=== PATIENT | female | born 1975 | race Caucasian/White ===

== ENCOUNTER → 2017-05-08 | Outpatient (CLI) | payer OTHER ==
[~2017-05-08] MED LIST: OPTIRAY 320 IV PRN
--- NOTE | 2017-05-08 12:57 | DIAGNOSTIC IMAGING REPORT ---
CT ABD/PELVIS IV CONTRAST ONLY CLINICAL HISTORY: INCISIONAL HERNIA COMPARISON STUDY: None. TECHNIQUE: Following the IV administration of 93 mL of Optiray-320, CT scan of the abdomen and pelvis was performed from the lung bases to the proximal femurs. Images are reviewed in the axial, sagittal, and coronal planes. IV contrast was administered without complication. A dose lowering technique was utilized adhering to the principles of ALARA. CT DOSE: 725.84 mGy.cm FINDINGS: Lower chest: There is a 16 mm groundglass opacity within the lingula. Liver: The contrast-enhanced liver is normal in size, contour, and attenuation. There is no intrahepatic biliary ductal dilatation. The hepatic veins and portal veins are patent. Gallbladder: Unremarkable. Spleen: Normal in size and attenuation. Pancreas: Unremarkable. Adrenal glands: Unremarkable. Kidneys: There is symmetric renal cortical enhancement. The kidneys are normal in size without hydronephrosis. Bowel: There are no transition zones to indicate bowel obstruction. The appendix appears normal. There is no evidence of acute diverticulitis. Peritoneum: There are 2 fat-containing supraumbilical ventral hernias. There is a fat-containing umbilical hernia. There is an infraumbilical ventral hernia containing a loop of small bowel. There is a right lateral abdominal wall hernia lipoma. No free intraperitoneal air is visualized. There is a small amount of fluid within the right adnexa. Vasculature: The abdominal aorta is normal in course and caliber. Adenopathy: None. Pelvic viscera: The uterus is surgically absent. There is a 3 cm septated left ovarian cystic lesion. Skeletal structures: No destructive osseous lesions are seen. IMPRESSION: 1. Four ventral hernias are visualized. The inferior most hernia contains a loop of small bowel. There is no current evidence of obstruction 2. No evidence of bowel obstruction. No evidence of free air 3. Surgically absent uterus. 3 cm septated left ovarian cystic lesion. Electronically signed by: Tristian Franco M.D. 05/08/2017 12:56 PM Dictated Date/Time: 05/08/2017 12:48 PM
== END | disposition home or self-care (01) ==
LOC: C.CTS 12:21
PROVIDERS: ATTEND Surgery
DX: K43.2 Incisional hernia without obstruction or gangrene (principal); N83.202 Unspecified ovarian cyst, left side; Z90.710 Acquired absence of both cervix and uterus

== ENCOUNTER → 2017-05-12 | Outpatient (CLI) | payer OTHER ==
[~2017-05-12] MED LIST changes: +ASPI-390 PO; +HYDR25TA4 PO; -OPTIRAY 320 IV PRN
[2017-05-12 13:12] LABS: BASO % 0.3 %; BASO ABS # 0.02 K/uL (0-0.2); COMPLETE YES; EOS % 2.6 %; HEMATOCRIT 41.1 % (37-47); IG% 0.1 %; LYMPH % 23.1 %; LYMPH ABS # 1.79 K/uL (1.2-3.4); MEAN CELL VOLUME 82.5 fL (80-100); MEAN CORPUSCULAR HEMOGLOBIN 27.9 pg (25-34); MEAN CORPUSCULAR HGB CONC 33.8 g/dl (32-36); MEAN PLATELET VOLUME 9.8 fL (7.4-10.4); NEUT % 66.9 %; PLATELET COUNT 223 K/uL (130-400); RED BLOOD COUNT 4.98 M/uL (4.2-5.4); WHITE BLOOD COUNT 7.75 K/uL (4.8-10.8)
[2017-05-12 13:43] LABS: ALKALINE PHOSPHATASE 87 U/L (45-117); ALT/SGPT 20 U/L (12-78); AST/SGOT 9 U/L (15-37)
== END | disposition home or self-care (01) ==
LOC: C.LAB 12:24
PROVIDERS: ATTEND Surgery
DX: Z01.812 Encounter for preprocedural laboratory examination (principal); K43.2 Incisional hernia without obstruction or gangrene

== ENCOUNTER 2017-05-24 08:52 | Observation (INO) | payer OTHER ==
[2017-05-15 11:46] VITALS: BMI 35.0
[~2017-05-24] VITALS: Ht 170.2 cm; Wt 102.3 kg
[2017-05-24] VITALS (7 sets, daily range): BP systolic 115–164; BP diastolic 75–100; PULSE 88–103; TEMP 36.6–37; O2SAT 93–98; Ht 170.2 cm; Wt 102.3 kg
[~2017-05-24 08:52] MED LIST changes: -HYDR25TA4 PO; +LACTATED RINGER'S 1000ML 1,000 ML IV SCH
[2017-05-24] MEDS ORDERED: BUPIVACAINE 0.5 % 5 MG/1 ML MPF 30ML VIAL ONE (09:21)
[2017-05-24] MEDS ORDERED: CEFAZOLIN SOD 2000MG/10 ML IV PUSH IV ONE (09:46)
--- NOTE | 2017-05-24 10:08 | History & Physical Bridge Note ---
H&P Re-Evaluation Bridge Note: I have examined the patient, reviewed the History & Physical and in the interval since the performance of the History & Physical I have noted the following changes of clinical significance: No changes noted
[2017-05-24] MEDS ORDERED: MIDAZOLAM HCL 1 MG/ML 2ML VIAL ONE (10:22)
[2017-05-24] MEDS ORDERED: FENTANYL CITRATE INJ 50 MCG/1 ML 2 ML VIAL ONE ×4 (10:22→13:45)
[2017-05-24] MEDS ORDERED: ONDANSETRON INJ 2 MG/ML 2 ML VIAL ONE (10:27)
[2017-05-24] MEDS ORDERED: DEXAMETHASONE SOD INJ 4 MG/ML VIAL ONE (10:27)
[2017-05-24] MEDS ORDERED: ROCURONIUM BROMIDE 10 MG/ML 5 ML VIAL IV ONE (10:27)
[2017-05-24] MEDS ORDERED: LIDOCAINE HCL 2% 2 ML VIAL (20MG/ML) ONE (10:27)
[2017-05-24] MEDS ORDERED: PROPOFOL IV EMULSION 10 MG/ML 20 ML VIAL IV ONE ×2 (10:27→13:42)
[2017-05-24] MEDS ORDERED: RANITIDINE HCL 25 MG/ML INJ ONE (10:55)
[2017-05-24] MEDS ORDERED: DiphenhydrAMINE HCL 50 MG/ML VIAL ONE (10:55)
[2017-05-24] MEDS ORDERED: METOCLOPRAMIDE HCL INJ 5 MG/ML 2 ML VIAL ONE (10:55)
[2017-05-24] MEDS ORDERED: LABETALOL HCL IV 5 MG/ML 20ML IV PRN (11:00)
[2017-05-24] MEDS ORDERED: ATROPINE SULFATE 0.1 MG/ML 5ML SYR IV PRN (11:00)
[2017-05-24] MEDS ORDERED: NALOXONE HCL 0.4 MG/1 ML VIAL/CARP IV PRN (11:00)
[2017-05-24] MEDS ORDERED: EpHEDrine SULFATE INJ 50 MG/ML AMP IV PRN (11:00)
[2017-05-24] MEDS ORDERED: PROMETHAZINE HCL INJ 12.5 MG in SODIUM CHLORIDE 0.9% 50ML 50 ML IV PRN (11:00)
[2017-05-24] MEDS ORDERED: ONDANSETRON INJ 2 MG/ML 2 ML VIAL IV PRN ×2 (11:00→14:15)
[2017-05-24] MEDS ORDERED: FLUMAZENIL 0.1 MG/1 ML 10 ML VIAL IV PRN (11:00)
[2017-05-24] MEDS ORDERED: KETOROLAC TROMETHAMINE 30 MG/ML VIAL ONE (13:44)
[2017-05-24] MEDS ORDERED: GLYCOPYRROLATE INJ 0.2 MG/ML VIAL ONE (13:51)
[2017-05-24] MEDS ORDERED: NEOSTIGMINE METHYLSULFATE 5 MG/5 ML SYR ONE (13:51)
[2017-05-24] MEDS: FENTANYL CITRATE INJ 50 MCG/1 ML 2 ML VIAL IV PRN ×4 (14:11→14:31)
--- NOTE | 2017-05-24 14:13 | [facility] Post Operative Brief Note ---
Immediate Operative Summary Operative Date May 24, 2017. Pre-Operative Diagnosis Incisional hernias Post-Operative Diagnosis Incarcerated incisional hernias Procedure(s) Performed Laparoscopic Incisional Hernia Repair, Incarcerated with Mesh, Extensive Lysis of Adhesions Surgeon Dr Cristiano Moore Airplane And Engine Inspector Surgeon(s) Morales WATERMAN, GUEVARA Valdovinos Estimated Blood Loss 15 mL Findings Significant adhesions of omentum and bowel to anterior abdominal wall, some very dense. Taken down with cautery, harmonic, and sharp dissection. Inferior defect with incarcerated small bowel and dense adhesions. Bowel run, no injuries identified. Multiple fascial defects. [id number] Ventralight ST with Echo PS mesh placed and secured into place with sorbafix tacks in double crown technique. 12mm port site closed with 0 vicryl suture. Specimens None Drains None Anesthesia GETA Complication(s) None Disposition Recovery Room / PACU
[2017-05-24] MEDS ORDERED: OXYCODONE/ACETAMINOPHEN 5-325 TAB PO PRN ×2 (14:15)
[2017-05-24] MEDS ORDERED: MoRPHine SULFATE 2 MG/ML CARP IV PRN ×2 (14:15)
[2017-05-24] MEDS ORDERED: KETOROLAC TROMETHAMINE 15 MG/ML VIAL IV PRN (14:15)
[2017-05-24] MEDS ORDERED: HYDROmorphone INJ 2 MG/ML SYR/VIAL IV STA (14:19)
--- NOTE | 2017-05-24 14:33 | [facility] Operative Report ---
Operative Report Operative Date May 24, 2017. Pre-Operative Diagnosis Incisional hernias Post-Operative Diagnosis incarcerated incisional hernias; adhesions Procedure(s) Performed laparoscopic incisional hernia repair with mesh, incarcerated; laparoscopic extensive lysis of adhesions Surgeon Dr Cristiano Moore Tear Down Worker Surgeon(s) Morales WATERMAN, GUEVARA Valdovinos Estimated Blood Loss 15 mL Findings Significant adhesions of omentum and bowel to anterior abdominal wall, some very dense. Taken down with cautery, harmonic, and sharp dissection. Inferior defect with incarcerated small bowel and dense adhesions. Bowel run, no injuries identified. Multiple fascial defects. [id number] Ventralight ST with Echo PS mesh placed and secured into place with sorbafix tacks in double crown technique. 12mm port site closed with 0 vicryl suture. Specimens None Drains None Anesthesia GETA Complication(s) None Disposition Recovery Room / PACU Indications 41-year-old female with a history of total abdominal hysterectomy for large fibroid tumor earlier this year, now with multiple incisional hernias, one of which contains bowel. Plan for laparoscopic incisional hernia repair. The risks of the procedure were discussed, all questions were answered, and the patient agreed to proceed with surgery as planned. Description of Procedure The patient was properly identified, consented, and taken to the operating room where she was placed in the supine position. General endotracheal anesthesia was induced. A Jacobs catheter, SCDs and a safety belt were placed. Preoperative antibiotics were administered. The patient's abdomen was prepped and draped in the standard sterile fashion. Surgical timeout was performed and all parties were in agreement that this was the correct patient and procedure to be performed and we continued as planned. A stab incision was made in the left upper quadrant and the Veress needle was inserted. Saline drop test confirmed entry into the peritoneum. The abdomen was insufflated with carbon dioxide which the patient tolerated without incident. The abdomen was then entered using the Optiview technique and a 5 mm trocar. The laparoscope was inserted and no damage from initial trocar or Veress needle placement was noted. There is extensive adhesions, no other gross abnormalities were noted within the 4 quadrants of the abdomen. A 12 mm port was placed in the left lateral abdomen and a 5 mm port were then placed in the left lower quadrant. There was significant amount of adhesions within the abdomen. The omental adhesions to the anterior abdominal were taken down with electrocautery and Harmonic. The upper midline incisional hernias were reduced and contained mostly omentum. The inferior portion of the abdomen contained dense adhesions, many of which contained bowel. There were several pieces of bowel stuck to the anterior abdominal wall at the inferior most portion of the incisional hernia, and one loop of bowel was densely adhesed into the hernia itself. This was taken down with sharp dissection. A small amount of abdominal wall was taken with this. After the extensive lysis of adhesions had been performed, the bowel was examined and run for the entirety of its length. There appeared to be no injury to the bowel. The hernia defects were then examined and measured. We chose a 25 x [address] with Echo PS mesh. The mesh was soaked for a few seconds and then rolled into a scroll and passed through the left lateral abdominal port site. A suture grasper inserted through the anterior bowel wall in the middle of the multiple hernias, and was then used to grab the tab and pull it up through the anterior abdominal wall. This was cut and the positioning system inflated allowing the mesh to lay flat along the abdominal wall. The mesh covered all of the fascial defects with several centimeters of overlap. The mesh was oriented on its proper axis, and it was secured into place using the Sorbafix tacker along its entire perimeter. Two 5 mm ports were placed on the right to aid in this process. After the mesh was properly secured the positioning system was deflated and removed through the 12 mm port. We then completed securing the mesh in a double crown technique. The 12 mm port site fascia was closed with an 0 Vicryl [id number] suture using the suture passer. The abdomen was again examined and there was no evidence of damage to the bowel, and hemostasis was good. The ports are removed under direct visualization, and the abdomen was allowed to collapse. Port site incisions were closed with 4-0 Monocryl subcuticular sutures. Dermabond was placed over the wounds. The jacobs catheter was removed. The patient was extubated in the operating room and taken to the PACU where she recovered without apparent incident. All sponge, instrument and needle counts were correct at the conclusion of the procedure. The patient tolerated the procedure well. The PAs were essential for entering the abdomen, retraction, driving the camera , securing the mesh in place, and closing the incisions at the conclusion of the case. I attest to the content of the Intraoperative Record and any orders documented therein. Any exceptions are noted below.
[2017-05-24] MEDS: MEPERIDINE HCL 50 MG/ML CARP IV PRN ×3 (14:44→15:00)
[2017-05-24] MEDS ORDERED: NURSING VERBAL MED ORDER ONE (14:45)
[2017-05-24] MEDS ORDERED: IV FLUIDS COMPLETED PRN (14:45)
--- NOTE | 2017-05-24 15:06 | Anesthesiology Progress Note ---
Anesthesia Post Op Note Date & Time May 24, 2017 at 15:06 Vital Signs Pain Intensity: 6 Vital Signs Past 12 Hours Date Time Temp Pulse Resp B/P (MAP) Pulse Ox O2 Delivery O2 Flow Rate FiO2 05/24/17 15:00 95 14 151/89 96 Nasal Cannula 2 05/24/17 14:50 92 12 165/93 96 Nasal Cannula 2 05/24/17 14:40 96 13 160/100 95 Nasal Cannula 2 05/24/17 14:30 103 13 155/88 99 Nasal Cannula 2 05/24/17 14:20 100 12 166/90 97 Oxymask 10 05/24/17 14:10 100 12 161/86 100 Oxymask 10 05/24/17 14:04 37.3 103 18 159/100 100 Oxymask 10 05/24/17 09:17 37.0 88 18 164/100 (121) 98 Room Air Notes Mental Status: alert / awake / arousable, participated in evaluation Pt Amnestic to Procedure: Yes Nausea / Vomiting: adequately controlled Pain: adequately controlled Airway Patency, RR, SpO2: stable & adequate BP & HR: stable & adequate Hydration State: stable & adequate Anesthetic Complications: no major complications apparent
[2017-05-24] MEDS: LACTATED RINGER'S 1000ML 1,000 ML IV SCH (17:23)
[2017-05-25] MEDS: LACTATED RINGER'S 1000ML 1,000 ML IV SCH (01:02)
[2017-05-25 03:32] VITALS: BP 136/84; PULSE 76; TEMP 36.9; O2SAT 95
[2017-05-25 07:51] VITALS: BP 148/87; PULSE 93; TEMP 36.7; O2SAT 95
--- NOTE | 2017-05-25 09:44 | Anesthesiology Progress Note ---
Anesthesia Post Op Note Date & Time May 25, 2017 at 09:43 Vital Signs Pain Intensity: 7.0 Vital Signs Past 12 Hours Date Time Temp Pulse Resp B/P (MAP) Pulse Ox O2 Delivery O2 Flow Rate FiO2 05/25/17 07:51 36.7 93 16 148/87 (107) 95 Room Air 05/25/17 03:32 36.9 76 16 136/84 (101) 95 Room Air 05/25/17 00:30 Room Air 05/24/17 23:10 37.0 88 16 115/75 (88) 93 Room Air Notes Mental Status: alert / awake / arousable, participated in evaluation Pt Amnestic to Procedure: Yes Nausea / Vomiting: adequately controlled Pain: adequately controlled Airway Patency, RR, SpO2: stable & adequate BP & HR: stable & adequate Hydration State: stable & adequate Anesthetic Complications: no major complications apparent
[2017-05-25] MEDS ORDERED: OXYC-57 PO (10:11)
--- NOTE | 2017-05-25 10:11 | Surgery Progress Note ---
Surgery Progress Note Date of Service May 25, 2017. Subjective Post OP Day: 1 + feeling well, + pain controlled, + diet (tolerating), No nausea Objective Vital Signs: Date Time Temp Pulse Resp B/P (MAP) Pulse Ox O2 Delivery O2 Flow Rate FiO2 05/25/17 07:51 36.7 93 16 148/87 (107) 95 Room Air 05/25/17 03:32 36.9 76 16 136/84 (101) 95 Room Air 05/25/17 00:30 Room Air 05/24/17 23:10 37.0 88 16 115/75 (88) 93 Room Air 05/24/17 18:58 36.9 101 18 128/81 (97) 94 Room Air 05/24/17 17:45 36.9 97 18 145/94 (111) 96 Nasal Cannula 2.0 05/24/17 16:45 36.6 93 18 121/79 (93) 97 Nasal Cannula 2.0 05/24/17 16:15 36.8 95 18 128/84 (99) 96 Nasal Cannula 2.0 05/24/17 15:45 36.8 103 14 137/83 (101) 96 Nasal Cannula 2.0 05/24/17 15:45 96 Nasal Cannula 2.0 05/24/17 15:45 96 Nasal Cannula 2.0 05/24/17 15:25 89 12 132/92 94 Nasal Cannula 2 05/24/17 15:10 37.3 95 13 144/81 96 Nasal Cannula 2 05/24/17 15:00 95 14 151/89 96 Nasal Cannula 2 05/24/17 14:50 92 12 165/93 96 Nasal Cannula 2 05/24/17 14:40 96 13 160/100 95 Nasal Cannula 2 05/24/17 14:30 103 13 155/88 99 Nasal Cannula 2 05/24/17 14:20 100 12 166/90 97 Oxymask 10 05/24/17 14:10 100 12 161/86 100 Oxymask 10 05/24/17 14:04 37.3 103 18 159/100 100 Oxymask 10 Abdomen: non distended, soft Incision(s): clean, dry Assessment & Plan s/p lap repair multiple incisional hernias tolerating diet and analgesics, ok for d/c seen earlier by Dr. Moore
--- NOTE | 2017-05-25 10:13 | Discharge Instructions ---
Discharge Instructions Date of Service May 25, 2017. Admission Reason for Admission: Incisional Hernia Discharge Discharge Diagnosis / Problem: laparoscopic hernia repairs Discharge Goals Goal(s): Decrease discomfort Activity Recommendations Activity Limitations: as noted below Lifting Limitations: no more than 10 pounds Shower/Bathe: no limitations (ok to shower) Driving or Machine Use: resume 3 days after discharge . Instructions / Follow-Up Instructions / Follow-Up Dr. Moore in 10-14 days, call [phone] if you do not already have an appt or if you have any questions You may take ibuprofen 400-600 mg every 6 hours as needed between Percocet doses Current Hospital Diet Patient's current hospital diet: Regular Diet Discharge Diet Recommended Diet: Regular Diet Procedures Procedures Performed: Laparoscopic Incisional Hernia Repair, Incarcerated with Mesh, Extensive Lysis of Adhesions Pending Studies Studies pending at discharge: no Medical Emergencies . Who to Call and When: Medical Emergencies: If at any time you feel your situation is an emergency, please call 911 immediately. . Non-Emergent Contact Non-Emergency issues call your: Surgeon Call Non-Emergent contact if: you have a fever, temperature is above 101.5, your pain is not controlled, wound has increased pain, you have any medication questions . "Provider Documentation" section prepared by Valdemar Mitchell. . VTE Core Measure Inpt VTE Proph given/why not?: SCD's
--- NOTE | 2017-05-25 10:19 | Surgery Progress Note ---
Surgery Progress Note Date of Service May 25, 2017. Subjective 41-year-old female status post laparoscopic incisional hernia repair with extensive lysis of adhesions, postoperative day 1. Overall doing well, pain is improved since last night. She has tolerated regular diet, she is urinating, she is passing flatus, and she is ambulating. She would like to be discharged. Objective Vital Signs: Date Time Temp Pulse Resp B/P (MAP) Pulse Ox O2 Delivery O2 Flow Rate FiO2 05/25/17 07:51 36.7 93 16 148/87 (107) 95 Room Air 05/25/17 03:32 36.9 76 16 136/84 (101) 95 Room Air 05/25/17 00:30 Room Air 05/24/17 23:10 37.0 88 16 115/75 (88) 93 Room Air 05/24/17 18:58 36.9 101 18 128/81 (97) 94 Room Air 05/24/17 17:45 36.9 97 18 145/94 (111) 96 Nasal Cannula 2.0 05/24/17 16:45 36.6 93 18 121/79 (93) 97 Nasal Cannula 2.0 05/24/17 16:15 36.8 95 18 128/84 (99) 96 Nasal Cannula 2.0 05/24/17 15:45 36.8 103 14 137/83 (101) 96 Nasal Cannula 2.0 05/24/17 15:45 96 Nasal Cannula 2.0 05/24/17 15:45 96 Nasal Cannula 2.0 05/24/17 15:25 89 12 132/92 94 Nasal Cannula 2 05/24/17 15:10 37.3 95 13 144/81 96 Nasal Cannula 2 05/24/17 15:00 95 14 151/89 96 Nasal Cannula 2 05/24/17 14:50 92 12 165/93 96 Nasal Cannula 2 05/24/17 14:40 96 13 160/100 95 Nasal Cannula 2 05/24/17 14:30 103 13 155/88 99 Nasal Cannula 2 05/24/17 14:20 100 12 166/90 97 Oxymask 10 05/24/17 14:10 100 12 161/86 100 Oxymask 10 05/24/17 14:04 37.3 103 18 159/100 100 Oxymask 10 General Appearance: WD/WN, no apparent distress Abdomen: normal bowel sounds, non distended, soft, no organomegaly, no pulsatile mass, + tenderness (Appropriately tender to palpation, no guarding or rebound.) Incision(s): clean, dry, intact, no erythema, no drainage Assessment & Plan POD#1 status post laparoscopic incisional hernia repair with extensive lysis of adhesions, doing well, pain controlled, would like to be discharged. Discharge to home Wound care instructions given Recommend abdominal binder for 2 weeks No heavy lifting or strenuous activity for 6 weeks Follow up in clinic in 10-14 days Percocet p.r.n. pain, ibuprofen for pain Return precautions given Call with questions or concerns
[2017-05-25 10:22] VITALS: BP 148/87; PULSE 93; TEMP 36.7; O2SAT 95
--- NOTE | 2017-05-26 09:56 | DISCHARGE SUMMARY ---
ATTENDING PHYSICIAN: Dr. Cristiano Moore. PRIMARY DISCHARGE DIAGNOSIS: Multiple incarcerated incisional hernias. SECONDARY DISCHARGE DIAGNOSES: 1. Hypertension. 2. Migraines. PROCEDURE PERFORMED: Laparoscopic repair of multiple incisional hernias and extensive lysis of adhesions. HOSPITAL COURSE: The patient is a 41-year-old female with multiple incisional hernias, admitted through same day and taken to the operating room for laparoscopic repair with mesh. A 20 x 25 cm Ventralight mesh was placed. The procedure was well tolerated. She was transferred to the surgical floor for an overnight observation. On postoperative day 1, she was tolerating diet and oral analgesics. Her incisions were clean and dry. Her abdomen was soft. She was stable for discharge. DISCHARGE INSTRUCTIONS: Discharge home. Follow up with Dr. Moore within 2 weeks. Continue to wear abdominal binder during the day. DISCHARGE MEDICATIONS: Percocet 1-2 tablets every 4 hours as needed. Continue home hydrochlorothiazide 25 mg daily, and hold Excedrin Migraine as long as she is taking the Percocet.
[2017-05-26] MEDS ORDERED: HYDR25TA4 PO (11:48)
== END 2017-05-25 10:55 | disposition home or self-care (01) ==
LOC: C.ACU 08:52 → C.MSW 09:15 → ENRESERV 15:21
PROVIDERS: ADMIT Surgery; ATTEND Surgery
DX: K43.0 Incisional hernia with obstruction, without gangrene (principal); R63.5 Abnormal weight gain; I10 Essential (primary) hypertension

== ENCOUNTER 2017-05-26 17:27 | Inpatient (IN) | payer OTHER ==
[~2017-05-26] VITALS: Ht 170.2 cm; Wt 35.2 kg
[~2017-05-26 17:27] MED LIST changes: -ASPI-390 PO; +HYDR25TA4 PO; -LACTATED RINGER'S 1000ML 1,000 ML IV SCH; +OXYC-57 PO
[2017-05-26] MEDS ORDERED: ONDANSETRON INJ 2 MG/ML 2 ML VIAL IV STA (17:55)
--- NOTE | 2017-05-26 17:58 | EMERGENCY ROOM VISIT NOTE ---
History Report prepared by Ferminibaranza: Xiomara More Under the Supervision of: Dr. Sundeep Ríos M.D. First contact with patient: 17:29 Stated Complaint: NAUSEA/VOMIT History of Present Illness The patient is a 41 year old white female with a past medical history of HTN who presents to the ED with a cc of persistent vomiting beginning around 2200 last night. Positive nausea, abdominal pain. Negative back pain, urinary symptoms. She reports she had hernia surgery this past Monday, by Dr. Moore here at [facility]. She was kept overnight 1 night, and states she felt well when she got home. She had been taking Percocet for post-surgical pain. Last night she started vomiting and has been unable to keep anything down since then last night. Her last BM was 2 days [employer], before her surgery. She has not been passing gas. Source of History: patient Onset: 2200 last night Position: other (global) Timing: other (persistent) Associated Symptoms: + nausea, + abdominal pain, No back pain, No urinary symptoms Review of Systems See HPI for pertinent positives and negatives. A total of ten systems were reviewed and were otherwise negative. Past Medical & Surgical Medical Problems: (1) Hypertension (2) Ileus following gastrointestinal surgery (3) Uterine fibroid (4) Ventral incisional hernia Surgical Problems: (1) History of hernia surgery (2) History of hysterectomy Social History Smoking Status: Never Smoker Alcohol Use: none Drug Use: none Marital Status: Housing Status: lives with family Occupation Status: employed Current/Historical Medications Scheduled Hydrochlorothiazide (Hctz), 25 MG PO QAM Scheduled PRN Oxycodone/Acetaminophen 5MG/325MG (Percocet 5MG/325MG), 1-2 TABLETS PO Q4H PRN for Pain Allergies Coded Allergies: Codeine (Verified Allergy, Severe, ANAPHYLAXIS, 05/24/17) Physical Exam Vital Signs Date Time Temp Pulse Resp B/P (MAP) Pulse Ox O2 Delivery O2 Flow Rate FiO2 05/26/17 18:22 97 05/26/17 17:49 37.1 103 20 165/105 95 Room Air Physical Exam GENERAL: Awake, alert, well-appearing, NAD HENT: Normocephalic, atraumatic. EYES: Normal conjunctiva. Sclera non-icteric. NECK: Supple. No nuchal rigidity. FROM. No CVA tenderness to palpation. RESPIRATORY: CTAB, no rhonchi, wheezing, crackles CARDIAC: RRR, no MRG ABDOMEN: Well healing midline surgical incision. 4 smaller horizontal incisional sites, well appearing, mild redness, no fluctuance. LUQ pain. Abdominal tender except in LLQ. Soft, BS+ MSK: No chest wall TTP, no LE edema NEURO: GCS 15, CN 2-12 intact, moves all 4s on command SKIN: No rash or jaundice noted. Medical Decision & Procedures ER Provider Diagnostic Interpretation: Radiology results as stated below per my review and radiologist interpretation: CT SCAN OF THE ABDOMEN AND PELVIS WITH IV CONTRAST CLINICAL HISTORY: Obstipation. Nausea and vomiting. Recent surgery. COMPARISON STUDY: Abdominal CT dated 05/08/2017. TECHNIQUE: Following the IV administration of 116 cc of Optiray 320, CT scan of the abdomen and pelvis is performed from the lung bases to the proximal femora. Images are reviewed in the axial, sagittal, and coronal planes. IV contrast was administered without complication. A dose lowering technique was utilized adhering to the principles of ALARA. CT DOSE: 1020.37 mGy.cm FINDINGS: Lung bases: The heart is normal in size and without pericardial effusion. The lung bases are clear noting left basilar atelectasis. Liver: The contrast-enhanced liver is normal in size, contour, and attenuation. There is no intrahepatic biliary ductal dilatation. The hepatic veins and portal veins are patent. Gallbladder: Unremarkable. Spleen: Normal in size and attenuation. Pancreas: Unremarkable. Adrenal glands: Unremarkable. Kidneys: The contrast enhanced kidneys are normal in size and without hydronephrosis. The kidneys enhance symmetrically. Abdominal vasculature: The abdominal aorta is normal in course and caliber. Bowel: The proximal small bowel loops are distended and fluid-filled. These measure up to 4.2 cm in caliber. Matted loops in the ventral lower abdomen are likely related to adhesions. A discrete transition point is seen in the right lower quadrant on image #352. The appearance is consistent with a high-grade small bowel obstruction. The distal small bowel and colon are decompressed. The loops of small bowel in the left upper quadrant are significantly thick-walled and hyperemic with trace interloop fluid. No pneumatosis intestinalis or portal venous gas is seen. The appendix is well-visualized and normal. Peritoneum: There are tiny foci of intraperitoneal free air seen in the mid abdomen. These are nonspecific and likely related to recent surgery. A midline surgical scar is noted. There is a small volume of free fluid in the pelvis. There is a complex fat-containing umbilical hernia. There are small fat-containing supraumbilical hernias. There is a fluid containing infraumbilical hernia seen on image #326. The pocket of fluid measures 3.6 cm. There is a complex gas and fluid containing collection in the central pelvis with surrounding bowel loops seen image #396. This measures approximately 7 x 11 x 6 cm and is typical in appearance for abscess. Lymphadenopathy: None. Pelvic viscera: The bladder is normal as visualized. The uterus is surgically absent. No adnexal lesion is seen. Skeletal structures: No lytic or blastic lesions are seen. Soft tissues: There is induration and fluid seen within the subcutaneous soft tissues in the ventral abdomen, the right flank, and in the left flank. Numerous foci of gas are present within the subcutaneous soft tissues throughout the abdomen, likely related recent surgery. IMPRESSION: 1. Findings are consistent with a high-grade small bowel obstruction. A transition point is identified in the right lower quadrant, and this is likely on the basis of adhesions. 2. The small bowel loops in the left upper quadrant are thick-walled and hyperemic. These loops may be a risk for ischemia. Surgical consultation is advised. 3. There are small foci of intraperitoneal free air, nonspecific and likely related to recent surgery. 4. There is a large complex gas and fluid containing collection in the central pelvis with surrounding bowel loops. The appearance is highly suggestive of abscess. 5. There is a complex umbilical hernia as well as supraumbilical and intraumbilical hernias. Nonspecific fluid is seen within an infraumbilical hernia. Abscess is not excluded. 6. There is trace free fluid in the pelvis. 7. Induration with subcutaneous fluid and foci of gas within the abdominal wall are likely related to recent surgery. 8. Additional findings as above. Electronically signed by: All Stuart M.D. 05/26/2017 7:40 PM KUB CLINICAL HISTORY: Small bowel obstruction. FINDINGS: 2 AP supine abdominal radiographs are correlated with abdominal CT performed the same day 05/26/2017. Small bowel obstruction is again noted. Small bowel loops measure up to 4.3 cm in caliber. No evidence of intraperitoneal free air is seen on these supine views. Excreted contrast is present in the renal collecting system bilaterally and the bladder. No abnormal abdominal calcifications are seen. The bony structures appear intact. IMPRESSION: Small bowel obstruction. Electronically signed by: All Stuart M.D. 05/26/2017 8:19 PM Laboratory Results 05/26/17 18:15 Red Blood Count 5.21, Mean Corpuscular Volume 82.3, Mean Corpuscular Hemoglobin 28.6, Mean Corpuscular Hemoglobin Concent 34.7, Mean Platelet Volume 9.7, Neutrophils (%) (Auto) 89.6, Lymphocytes (%) (Auto) 4.6, Monocytes (%) (Auto) 5.4, Eosinophils (%) (Auto) 0.0, Basophils (%) (Auto) 0.1, Neutrophils # (Auto) 14.71, Lymphocytes # (Auto) 0.75, Monocytes # (Auto) 0.89, Eosinophils # (Auto) 0.00, Basophils # (Auto) 0.02 05/26/17 18:15 Test 05/26/17 18:15 White Blood Count 16.42 K/uL (4.8-10.8) Red Blood Count 5.21 M/uL (4.2-5.4) Hemoglobin 14.9 g/dL (12.0-16.0) Hematocrit 42.9 % (37-47) Mean Corpuscular Volume 82.3 fL (80-100) Mean Corpuscular Hemoglobin 28.6 pg (25-34) Mean Corpuscular Hemoglobin Concent 34.7 g/dl (32-36) Platelet Count 288 K/uL (130-400) Mean Platelet Volume 9.7 fL (7.4-10.4) Neutrophils (%) (Auto) 89.6 % Lymphocytes (%) (Auto) 4.6 % Monocytes (%) (Auto) 5.4 % Eosinophils (%) (Auto) 0.0 % Basophils (%) (Auto) 0.1 % Neutrophils # (Auto) 14.71 K/uL (1.4-6.5) Lymphocytes # (Auto) 0.75 K/uL (1.2-3.4) Monocytes # (Auto) 0.89 K/uL (0.11-0.59) Eosinophils # (Auto) 0.00 K/uL (0-0.5) Basophils # (Auto) 0.02 K/uL (0-0.2) RDW Standard Deviation 41.3 fL (36.4-46.3) RDW Coefficient of Variation 13.7 % (11.5-14.5) Immature Granulocyte % (Auto) 0.3 % Immature Granulocyte # (Auto) 0.05 K/uL (0.00-0.02) Anion Gap 8.0 mmol/L (3-11) Est Creatinine Clear Calc Drug Dose 150.9 ml/min Estimated GFR () 130.1 Estimated GFR (Non- 112.3 BUN/Creatinine Ratio 27.8 (10-20) Calcium Level 9.0 mg/dl (8.5-10.1) Total Bilirubin 0.7 mg/dl (0.2-1) Direct Bilirubin 0.2 mg/dl (0-0.2) Aspartate Amino Transf (AST/SGOT) 15 U/L (15-37) Alanine Aminotransferase (ALT/SGPT) 21 U/L (12-78) Alkaline Phosphatase 83 U/L (45-117) Total Protein 7.5 gm/dl (6.4-8.2) Albumin 2.9 gm/dl (3.4-5.0) Lipase 94 U/L (73-393) Laboratory results reviewed by me Medications Administered Medications (Trade) Dose Ordered Sig/Fred Route Start Time Stop Time Status Last Admin Dose Admin Ondansetron HCl (Zofran Inj) 4 mg NOW STAT IV 05/26/17 17:55 05/26/17 17:56 DC 05/26/17 18:19 4 MG Lorazepam (Ativan Inj) 0.5 mg NOW STAT IV 05/26/17 19:59 05/26/17 20:01 DC 05/26/17 20:20 0.5 MG Ondansetron HCl (Zofran Inj) 4 mg Q6H PRN IV 05/26/17 20:15 06/25/17 20:14 05/26/17 22:00 4 MG ED Course 1746: The patient was evaluated in room C11. A complete history and physical exam was performed. 1754: Zofran 4 mg IV. 1958: Ativan 0.5 mg IV. 2002: I discussed the patients case with Dr. North, [facility]. He recommends I consult with the hospital medicine team. 2009: I reevaluated the patient. She is feeling well and resting comfortably. I discussed my recommendation she remain in the hospital for further evaluation and management and she verbalized complete understanding and agreement. 2011: I discussed the patients case with Dr. Conner [facility] Hospitalist. The patient will be further evaluated. Medical Decision The patient is a 41 year old white female with a past medical history of HTN who presents to the ED with a cc of persistent vomiting beginning around 2200 last night. Triage Nursing notes reviewed. The patient's presentation and history were concerning for abdominal pain. Differential diagnosis: Etiologies such as appendicitis, diverticulitis, PUD, biliary pathology, UTI, pancreatitis, obstruction, mesenteric ischemia, aortic pathology, infections, inflammatory bowel disease, renal colic, as well as others were entertained. Patient was seen and evaluated the bedside. Patient did have a recent laparoscopic hernia repair completed on Monday. Patient was discharged home on . Patient states that she's had some persistent nausea and vomiting beginning last evening around 10 PM. Patient states that his been persistent daily times to count. Nonbloody nonbilious in nature. Patient does have some mild diffuse pain throughout with the exception of the left lower quadrant. Patient states she has not passed gas nor has she had a bowel movement prior to her procedure. This was completed by Dr. Moore. Patient's incisional sites look well-appearing. Patient did have blood work completed along with symptomatic control. A CT of the abdomen pelvis was also completed. She CT is concerning for high-grade small bowel obstruction. An NG tube was ordered and to be placed to low intermittent suction. I did speak with the surgeon. I did speak with the hospitalist. Patient was admitted to surgery. Medication Reconcilliation Current Medication List: was personally reviewed by me Blood Pressure Screening Patient's blood pressure: Elevated blood pressure Blood pressure disposition: Referred to PCP Consults Time Called: 2009 Consulting Physician: Dr. Conner [facility] Hospitalist Returned Call: 2011 I discussed the patients case with Dr. Conner [facility] Hospitalist. The patient will be further evaluated. Additional Consults: Time Called: 2000 Consulted Physician: Dr. North [facility] Surgery Returned Call: 2002 Additional Comments: I [facility] the [facility]. He recommends I consult with the hospital medicine team. Impression Primary Impression: Vomiting Additional Impression: Small bowel obstruction Scribe Attestation The scribe's documentation has been prepared under my direction and personally reviewed by me in its entirety. I confirm that the note above accurately reflects all work, treatment, procedures, and medical decision making performed by me. Departure Information Dispostion Being Evaluated By Hospitalist Referrals Kimberly Wolfe MD (PCP) Problem Qualifiers Primary Impression: Vomiting Vomiting type: unspecified Vomiting Intractability: non-intractable Nausea presence: with nausea Qualified Codes: R11.2 - Nausea with vomiting, unspecified
[2017-05-26 18:31] LABS: BASO % 0.1 %; BASO ABS # 0.02 K/uL (0-0.2); COMPLETE YES; HEMATOCRIT 42.9 % (37-47); IG% 0.3 %; LYMPH % 4.6 %; LYMPH ABS # 0.75 K/uL (1.2-3.4); MEAN CELL VOLUME 82.3 fL (80-100); MEAN CORPUSCULAR HEMOGLOBIN 28.6 pg (25-34); MEAN CORPUSCULAR HGB CONC 34.7 g/dl (32-36); MEAN PLATELET VOLUME 9.7 fL (7.4-10.4); MONO % 5.4 %; NEUT % 89.6 %; PLATELET COUNT 288 K/uL (130-400); RED BLOOD COUNT 5.21 M/uL (4.2-5.4); WHITE BLOOD COUNT 16.42 K/uL (4.8-10.8)
[2017-05-26 18:56] LABS: BUN/CREATININE RATIO 27.8 (10-20); CREATININE 0.59 mg/dl (0.60-1.20); POTASSIUM 3.4 mmol/L (3.5-5.1)
[2017-05-26] MEDS ORDERED: OPTIRAY 320 IV PRN (19:00)
--- NOTE | 2017-05-26 19:41 | DIAGNOSTIC IMAGING REPORT ---
CT SCAN OF THE ABDOMEN AND PELVIS WITH IV CONTRAST CLINICAL HISTORY: Obstipation. Nausea and vomiting. Recent surgery. COMPARISON STUDY: Abdominal CT dated 05/08/2017. TECHNIQUE: Following the IV administration of 116 cc of Optiray 320, CT scan of the abdomen and pelvis is performed from the lung bases to the proximal femora. Images are reviewed in the axial, sagittal, and coronal planes. IV contrast was administered without complication. A dose lowering technique was utilized adhering to the principles of ALARA. CT DOSE: 1020.37 mGy.cm FINDINGS: Lung bases: The heart is normal in size and without pericardial effusion. The lung bases are clear noting left basilar atelectasis. Liver: The contrast-enhanced liver is normal in size, contour, and attenuation. There is no intrahepatic biliary ductal dilatation. The hepatic veins and portal veins are patent. Gallbladder: Unremarkable. Spleen: Normal in size and attenuation. Pancreas: Unremarkable. Adrenal glands: Unremarkable. Kidneys: The contrast enhanced kidneys are normal in size and without hydronephrosis. The kidneys enhance symmetrically. Abdominal vasculature: The abdominal aorta is normal in course and caliber. Bowel: The proximal small bowel loops are distended and fluid-filled. These measure up to 4.2 cm in caliber. Matted loops in the ventral lower abdomen are likely related to adhesions. A discrete transition point is seen in the right lower quadrant on image #352. The appearance is consistent with a high-grade small bowel obstruction. The distal small bowel and colon are decompressed. The loops of small bowel in the left upper quadrant are significantly thick-walled and hyperemic with trace interloop fluid. No pneumatosis intestinalis or portal venous gas is seen. The appendix is well-visualized and normal. Peritoneum: There are tiny foci of intraperitoneal free air seen in the mid abdomen. These are nonspecific and likely related to recent surgery. A midline surgical scar is noted. There is a small volume of free fluid in the pelvis. There is a complex fat-containing umbilical hernia. There are small fat-containing supraumbilical hernias. There is a fluid containing infraumbilical hernia seen on image #326. The pocket of fluid measures 3.6 cm. There is a complex gas and fluid containing collection in the central pelvis with surrounding bowel loops seen image #396. This measures approximately 7 x 11 x 6 cm and is typical in appearance for abscess. Lymphadenopathy: None. Pelvic viscera: The bladder is normal as visualized. The uterus is surgically absent. No adnexal lesion is seen. Skeletal structures: No lytic or blastic lesions are seen. Soft tissues: There is induration and fluid seen within the subcutaneous soft tissues in the ventral abdomen, the right flank, and in the left flank. Numerous foci of gas are present within the subcutaneous soft tissues throughout the abdomen, likely related recent surgery. IMPRESSION: 1. Findings are consistent with a high-grade small bowel obstruction. A transition point is identified in the right lower quadrant, and this is likely on the basis of adhesions. 2. The small bowel loops in the left upper quadrant are thick-walled and hyperemic. These loops may be a risk for ischemia. Surgical consultation is advised. 3. There are small foci of intraperitoneal free air, nonspecific and likely related to recent surgery. 4. There is a large complex gas and fluid containing collection in the central pelvis with surrounding bowel loops. The appearance is highly suggestive of abscess. 5. There is a complex umbilical hernia as well as supraumbilical and intraumbilical hernias. Nonspecific fluid is seen within an infraumbilical hernia. Abscess is not excluded. 6. There is trace free fluid in the pelvis. 7. Induration with subcutaneous fluid and foci of gas within the abdominal wall are likely related to recent surgery. 8. Additional findings as above. Electronically signed by: All Stuart M.D. 05/26/2017 7:40 PM Dictated Date/Time: 05/26/2017 7:28 PM
[2017-05-26] MEDS ORDERED: LORAZEPAM 2 MG/ML 1 ML VIAL IV STA (19:59)
[2017-05-26] MEDS ORDERED: ONDANSETRON INJ 2 MG/ML 2 ML VIAL IV PRN (20:15)
[2017-05-26] MEDS ORDERED: MoRPHine SULFATE 2 MG/ML CARP IV PRN (20:15)
--- NOTE | 2017-05-26 20:20 | DIAGNOSTIC IMAGING REPORT ---
KUB CLINICAL HISTORY: Small bowel obstruction. FINDINGS: 2 AP supine abdominal radiographs are correlated with abdominal CT performed the same day 05/26/2017. Small bowel obstruction is again noted. Small bowel loops measure up to 4.3 cm in caliber. No evidence of intraperitoneal free air is seen on these supine views. Excreted contrast is present in the renal collecting system bilaterally and the bladder. No abnormal abdominal calcifications are seen. The bony structures appear intact. IMPRESSION: Small bowel obstruction. Electronically signed by: All Stuart M.D. 05/26/2017 8:19 PM Dictated Date/Time: 05/26/2017 8:17 PM
[2017-05-26 21:49] VITALS: BP 153/97; PULSE 88; TEMP 36.8; Ht 170.2 cm; Wt 35.2 kg
[2017-05-26] MEDS ORDERED: CEFTRIAXONE SOD INJ 1 GM in DEXTROSE 5% ADD-VANTAGE 50ML 50 ML IV SCH (22:00)
[2017-05-26] MEDS: POTASSIUM CHLR 10 MEQ / WTR 10 MEQ in PREMIXED WATER 100 ML IV SCH (22:00)
[2017-05-26] MEDS: LACTATED RINGER'S 1000ML 1,000 ML IV SCH (22:01)
[2017-05-26 23:22] VITALS: BP 154/88; PULSE 87; TEMP 36.7; O2SAT 98
[2017-05-27] MEDS: POTASSIUM CHLR 10 MEQ / WTR 10 MEQ in PREMIXED WATER 100 ML IV SCH (00:35)
[2017-05-27 01:49] LABS: URINE APPEARANCE CLEAR (CLEAR); URINE COLOR DK YELLOW; URINE EPITHELIAL CELL AUTO >30 /lpf (0-5); URINE NITRITE NEG (NEG); URINE PH 6.5 (4.5-7.5); URINE SPECIFIC GRAVITY > 1.045 (1.000-1.030); UROBILINOGEN NEG (NEG); ZZUR CULT IF INDIC CLEAN CATCH NO
[2017-05-27 02:15] LABS: MANUAL MICROSCOPIC REQUIRED? NO; REVIEW REQ? YES; URINE BILIRUBIN NEG (NEG)
[2017-05-27 02:40] LABS: URINE MUCUS PRESENT (NONE PRSENT)
[2017-05-27] MEDS: LACTATED RINGER'S 1000ML 1,000 ML IV SCH (05:09)
--- NOTE | 2017-05-27 06:02 | History and Physical ---
History & Physical Date & Time of Service: May 27, 2017 at 05:22 Chief Complaint: Ileus Following Gastrointestinal Surgery Primary Care Physician: Kimberly Wolfe MD History of Present Illness Source: patient This is a 41 year old white female who is 2 days s/p lap VHR who presents with likely ileus versus SBO. She comes in with persistent small volumes of vomiting beginning last night. She has had some nausea. Her pain is consistent with post-op and has improved since surgery. She has no urinary symptoms. She had operation this past Monday by Dr. Moore here at [facility]. She was kept overnight 1 night, and states she felt well when she got home. She had been taking Percocet for post-surgical pain. Last night she started vomiting and has been unable to keep anything down since then last night. Her last BM was 2 days [employer], before her surgery. She has not been passing gas. Past Medical/Surgical History PMHx -HTN -incisional hernia PSHx -GINA -lap VHR w/mesh Family History noncontributory Social History Smoking Status: Never Smoker Smokeless Tobacco Use: No Alcohol Use: socially Drug Use: none Marital Status: Occupational Status: employed Allergies Coded Allergies: Codeine (Verified Allergy, Severe, ANAPHYLAXIS, 05/27/17) PT BELIEVES SHE HAD MORPHINE YEARS AGO AND TOLERATED IT? Home Medications Scheduled Hydrochlorothiazide (Hctz), 25 MG PO QAM Scheduled PRN Oxycodone/Acetaminophen 5MG/325MG (Percocet 5MG/325MG), 1-2 TABLETS PO Q4H PRN for Pain Review of Systems Constitutional: No fever, No chills, No weight loss, No weakness, No fatigue Eyes: No problem reported ENT: No problem reported Respiratory: No cough, No shortness of breath, No dyspnea on exertion, No hemoptysis Cardiovascular: No chest pain, No edema, No palpitations Abdomen: + pain (postop), + nausea, + vomiting, + diarrhea, No constipation Musculoskeletal: No joint pain, No muscle pain Genitourinary - Female: No dysuria Neurologic: No problem reported Psychiatric: No problem reported Endocrine: No problem reported Hematologic / Lymphatic: No problem reported Integumentary: No problem reported Allergic / Immunologic: No problem reported Physical Exam Vital Signs Date Time Temp Pulse Resp B/P (MAP) Pulse Ox O2 Delivery O2 Flow Rate FiO2 05/26/17 23:45 Room Air 05/26/17 23:22 36.7 87 16 154/88 (110) 98 Room Air 05/26/17 21:55 Room Air 05/26/17 21:49 36.8 88 16 153/97 05/26/17 21:19 97 20 156/104 97 05/26/17 18:22 97 05/26/17 17:49 37.1 103 20 165/105 95 Room Air General Appearance: WD/WN, no apparent distress Head: normocephalic, atraumatic Eyes: normal inspection, PERRL, EOMI, sclerae normal ENT: normal ENT inspection Neck: supple, no adenopathy, trachea midline Respiratory/Chest: chest non-tender, lungs clear Cardiovascular: regular rate, rhythm, no edema, no murmur Abdomen/GI: normal bowel sounds, soft, + tenderness (mild), + pertinent finding (nondistendedc) Genitourinary - Female: external genitalia normal Back: normal inspection, normal range of motion Extremities/Musculoskelatal: no calf tenderness, no pedal edema Neurologic/Psych: no motor/sensory deficits, alert, normal mood/affect, oriented x 3 Skin: normal color, warm/dry, no rash Lymphatic: no adenopathy Diagnostics Laboratory Results Results Past 24 Hours Test 05/26/17 18:15 05/27/17 00:00 05/27/17 04:44 Range/Units White Blood Count 16.42 4.8-10.8 K/uL Red Blood Count 5.21 4.2-5.4 M/uL Hemoglobin 14.9 12.0-16.0 g/dL Hematocrit 42.9 37-47 % Mean Corpuscular Volume 82.3 80-100 fL Mean Corpuscular Hemoglobin 28.6 25-34 pg Mean Corpuscular Hemoglobin Concent 34.7 32-36 g/dl Platelet Count 288 130-400 K/uL Mean Platelet Volume 9.7 7.4-10.4 fL Neutrophils (%) (Auto) 89.6 % Lymphocytes (%) (Auto) 4.6 % Monocytes (%) (Auto) 5.4 % Eosinophils (%) (Auto) 0.0 % Basophils (%) (Auto) 0.1 % Neutrophils # (Auto) 14.71 1.4-6.5 K/uL Lymphocytes # (Auto) 0.75 1.2-3.4 K/uL Monocytes # (Auto) 0.89 0.11-0.59 K/uL Eosinophils # (Auto) 0.00 0-0.5 K/uL Basophils # (Auto) 0.02 0-0.2 K/uL RDW Standard Deviation 41.3 36.4-46.3 fL RDW Coefficient of Variation 13.7 11.5-14.5 % Immature Granulocyte % (Auto) 0.3 % Immature Granulocyte # (Auto) 0.05 0.00-0.02 K/uL Sodium Level 137 136-145 mmol/L Potassium Level 3.4 3.5-5.1 mmol/L Chloride Level 103 98-107 mmol/L Carbon Dioxide Level 26 21-32 mmol/L Anion Gap 8.0 3-11 mmol/L Blood Urea Nitrogen 16 7-18 mg/dl Creatinine 0.59 0.60-1.20 mg/dl Est Creatinine Clear Calc Drug Dose 150.9 ml/min Estimated GFR () 130.1 Estimated GFR (Non- 112.3 BUN/Creatinine Ratio 27.8 10-20 Random Glucose 134 70-99 mg/dl Calcium Level 9.0 8.5-10.1 mg/dl Total Bilirubin 0.7 0.2-1 mg/dl Direct Bilirubin 0.2 0-0.2 mg/dl Aspartate Amino Transf (AST/SGOT) 15 15-37 U/L Alanine Aminotransferase (ALT/SGPT) 21 12-78 U/L Alkaline Phosphatase 83 45-117 U/L Total Protein 7.5 6.4-8.2 gm/dl Albumin 2.9 3.4-5.0 gm/dl Lipase 94 73-393 U/L Urine Color DK YELLOW Urine Appearance CLEAR CLEAR Urine pH 6.5 4.5-7.5 Urine Specific [place] > 1.045 1.000-1.030 Urine Protein 1+ NEG Urine Glucose (UA) NEG NEG Urine Ketones 2+ NEG Urine Occult Blood NEG NEG Urine Nitrite NEG NEG Urine Bilirubin NEG NEG Urine Urobilinogen NEG NEG Urine Leukocyte Esterase NEG NEG Urine WBC (Auto) 1-5 0-5 /hpf Urine RBC (Auto) 0-4 0-4 /hpf Urine Hyaline Casts (Auto) 0 0-5 /lpf Urine Epithelial Cells (Auto) >30 0-5 /lpf Urine Bacteria (Auto) NEG NEG Urine Pathogenic Casts 0 /lpf Urine Mucus PRESENT NONE PRSENT Diagnostic Radiology CT SCAN OF THE ABDOMEN AND PELVIS WITH IV CONTRAST CLINICAL HISTORY: Obstipation. Nausea and vomiting. Recent surgery. COMPARISON STUDY: Abdominal CT dated 05/08/2017. TECHNIQUE: Following the IV administration of 116 cc of Optiray 320, CT scan of the abdomen and pelvis is performed from the lung bases to the proximal femora. Images are reviewed in the axial, sagittal, and coronal planes. IV contrast was administered without complication. A dose lowering technique was utilized adhering to the principles of ALARA. CT DOSE: 1020.37 mGy.cm FINDINGS: Lung bases: The heart is normal in size and without pericardial effusion. The lung bases are clear noting left basilar atelectasis. Liver: The contrast-enhanced liver is normal in size, contour, and attenuation. There is no intrahepatic biliary ductal dilatation. The hepatic veins and portal veins are patent. Gallbladder: Unremarkable. Spleen: Normal in size and attenuation. Pancreas: Unremarkable. Adrenal glands: Unremarkable. Kidneys: The contrast enhanced kidneys are normal in size and without hydronephrosis. The kidneys enhance symmetrically. Abdominal vasculature: The abdominal aorta is normal in course and caliber. Bowel: The proximal small bowel loops are distended and fluid-filled. These measure up to 4.2 cm in caliber. Matted loops in the ventral lower abdomen are likely related to adhesions. A discrete transition point is seen in the right lower quadrant on image #352. The appearance is consistent with a high-grade small bowel obstruction. The distal small bowel and colon are decompressed. The loops of small bowel in the left upper quadrant are significantly thick-walled and hyperemic with trace interloop fluid. No pneumatosis intestinalis or portal venous gas is seen. The appendix is well-visualized and normal. Peritoneum: There are tiny foci of intraperitoneal free air seen in the mid abdomen. These are nonspecific and likely related to recent surgery. A midline surgical scar is noted. There is a small volume of free fluid in the pelvis. There is a complex fat-containing umbilical hernia. There are small fat-containing supraumbilical hernias. There is a fluid containing infraumbilical hernia seen on image #326. The pocket of fluid measures 3.6 cm. There is a complex gas and fluid containing collection in the central pelvis with surrounding bowel loops seen image #396. This measures approximately 7 x 11 x 6 cm and is typical in appearance for abscess. Lymphadenopathy: None. Pelvic viscera: The bladder is normal as visualized. The uterus is surgically absent. No adnexal lesion is seen. Skeletal structures: No lytic or blastic lesions are seen. Soft tissues: There is induration and fluid seen within the subcutaneous soft tissues in the ventral abdomen, the right flank, and in the left flank. Numerous foci of gas are present within the subcutaneous soft tissues throughout the abdomen, likely related recent surgery. IMPRESSION: 1. Findings are consistent with a high-grade small bowel obstruction. A transition point is identified in the right lower quadrant, and this is likely on the basis of adhesions. 2. The small bowel loops in the left upper quadrant are thick-walled and hyperemic. These loops may be a risk for ischemia. Surgical consultation is advised. 3. There are small foci of intraperitoneal free air, nonspecific and likely related to recent surgery. 4. There is a large complex gas and fluid containing collection in the central pelvis with surrounding bowel loops. The appearance is highly suggestive of abscess. 5. There is a complex umbilical hernia as well as supraumbilical and intraumbilical hernias. Nonspecific fluid is seen within an infraumbilical hernia. Abscess is not excluded. 6. There is trace free fluid in the pelvis. 7. Induration with subcutaneous fluid and foci of gas within the abdominal wall are likely related to recent surgery. 8. Additional findings as above. Impression Assessment and Plan Ileus versus SBO s/p lap VHR -refuses ngt -IVF -abx -limit narcotics -serial KUB -if persistent vomiting recurs will need ngt -ambulate ASA Classification: ASA Class II Level of Care Med/Surg Advanced Directives Existing Living Will: Yes Existing Power of Director Prison: Yes Resuscitation Status FULL RESUSCITATION VTE Prophylaxis VTE Risk Assessment Done? Y/N: Yes Risk Level: Moderate Given or contraindicated: SCD's Social Service Consult None Apply
[2017-05-27 07:20] VITALS: BP 142/99; PULSE 94; TEMP 36.8; O2SAT 94
--- NOTE | 2017-05-27 07:27 | DIAGNOSTIC IMAGING REPORT ---
KUB HISTORY: Follow-up study in a patient with ileus ileus COMPARISON: KUB 05/26/2017, CT 05/26/2017. FINDINGS: Persistent dilated loops of small bowel are noted throughout the abdomen measuring up to 4.1 cm which is similar to slightly improved from prior exam. Gas-filled loops of large bowel are also noted. There is retained contrast within the urinary bladder. No pneumatosis or gross pneumoperitoneum. There is no organomegaly. No renal calculi. No ureteral calculi. No pneumoperitoneum or pneumatosis. No fracture. IMPRESSION: Stable to slightly decreased small bowel dilation. Electronically signed by: Kana Dorsey M.D. 05/27/2017 7:26 AM Dictated Date/Time: 05/27/2017 7:24 AM
[2017-05-27 07:29] LABS: BASO % 0.1 %; BASO ABS # 0.01 K/uL (0-0.2); COMPLETE YES; EOS % 1.3 %; HEMATOCRIT 39.7 % (37-47); IG% 0.4 %; LYMPH % 10.5 %; LYMPH ABS # 1.15 K/uL (1.2-3.4); MEAN CELL VOLUME 83.2 fL (80-100); MEAN CORPUSCULAR HEMOGLOBIN 27.9 pg (25-34); MEAN CORPUSCULAR HGB CONC 33.5 g/dl (32-36); MEAN PLATELET VOLUME 9.7 fL (7.4-10.4); NEUT % 78.7 %; PLATELET COUNT 303 K/uL (130-400); RED BLOOD COUNT 4.77 M/uL (4.2-5.4)
[2017-05-27 08:06] LABS: BUN/CREATININE RATIO 30.9 (10-20); CALCIUM 8.4 mg/dl (8.5-10.1); CREATININE 0.7 mg/dl (0.60-1.20); POTASSIUM 3.3 mmol/L (3.5-5.1)
[2017-05-27] MEDS: HYDROCHLOROTHIAZIDE 25 MG TAB PO SCH (08:26)
[2017-05-27] MEDS: D5NSS + 20MEQ KCL 1,000 ML IV SCH ×2 (10:47→17:57)
[2017-05-27] MEDS: PANTOprazole INJ 40 MG in SYRINGE 0 ML IV SCH (10:47)
[2017-05-27] MEDS: ACETAMINOPHEN 325 MG TAB PO PRN ×3 (10:47→22:02)
[2017-05-27 16:05] VITALS: BP 147/90; PULSE 85; TEMP 37; O2SAT 94
[2017-05-27 23:20] VITALS: BP 148/89; PULSE 83; TEMP 36.6; O2SAT 97
[2017-05-28] VITALS (7 sets, daily range): BP systolic 138–163; BP diastolic 87–108; PULSE 72–84; TEMP 36.7–36.8; O2SAT 96–99
[2017-05-28] MEDS: D5NSS + 20MEQ KCL 1,000 ML IV SCH ×3 (01:42→17:35)
[2017-05-28 07:14] LABS: BASO % 0.3 %; BASO ABS # 0.02 K/uL (0-0.2); COMPLETE YES; IG% 0.3 %; LYMPH % 17.2 %; LYMPH ABS # 1.33 K/uL (1.2-3.4); MEAN CELL VOLUME 83.9 fL (80-100); MEAN CORPUSCULAR HEMOGLOBIN 27.6 pg (25-34); MEAN CORPUSCULAR HGB CONC 32.9 g/dl (32-36); MEAN PLATELET VOLUME 9.8 fL (7.4-10.4); MONO % 7.6 %; NEUT % 70.6 %; PLATELET COUNT 266 K/uL (130-400); RED BLOOD COUNT 4.53 M/uL (4.2-5.4); WHITE BLOOD COUNT 7.73 K/uL (4.8-10.8)
[2017-05-28] MEDS: ACETAMINOPHEN 325 MG TAB PO PRN ×2 (07:19→11:21)
[2017-05-28] MEDS: HYDROCHLOROTHIAZIDE 25 MG TAB PO SCH (07:51)
[2017-05-28 08:02] LABS: BUN/CREATININE RATIO 24.8 (10-20); CALCIUM 7.9 mg/dl (8.5-10.1); CREATININE 0.44 mg/dl (0.60-1.20); POTASSIUM 3.5 mmol/L (3.5-5.1)
[2017-05-28] MEDS: PANTOprazole INJ 40 MG in SYRINGE 0 ML IV SCH (11:20)
[2017-05-28] MEDS ORDERED: NURSING VERBAL MED ORDER ONE (19:30)
[2017-05-28] MEDS ORDERED: METOPROLOL TARTRATE 25 MG TAB PO ONE (19:45)
[2017-05-29] VITALS (9 sets, daily range): BP systolic 139–160; BP diastolic 89–103; PULSE 67–81; TEMP 36.5–37; O2SAT 97–99
[2017-05-29] MEDS ORDERED: NURSING VERBAL MED ORDER ONE (04:45)
[2017-05-29] MEDS ORDERED: AMLODIPINE BESYLATE 5 MG TAB PO ONE (05:00)
[2017-05-29] MEDS: HYDROCHLOROTHIAZIDE 25 MG TAB PO SCH (08:22)
--- NOTE | 2017-05-29 09:15 | Surgery Progress Note ---
Surgery Progress Note Date of Service May 29, 2017. Subjective + complaints (some bloating), + flatus, + diet (clears), No bowel movement, No nausea Objective Vital Signs: Date Time Temp Pulse Resp B/P (MAP) Pulse Ox O2 Delivery O2 Flow Rate FiO2 05/29/17 08:38 97 Room Air 05/29/17 08:26 36.6 74 20 154/95 (114) 97 Room Air 05/29/17 07:20 Room Air 05/29/17 06:38 74 146/94 (111) 05/29/17 06:35 71 147/102 (117) 05/29/17 04:10 67 156/99 (118) 05/29/17 03:55 69 160/103 (122) 05/28/17 23:45 Room Air 05/28/17 23:04 145/95 (112) 05/28/17 23:00 36.8 72 16 155/106 (122) 97 Room Air 05/28/17 21:39 84 138/87 (104) 05/28/17 19:13 84 163/105 (124) 05/28/17 15:45 Room Air 05/28/17 15:37 36.7 84 17 163/105 (124) 99 Room Air Abdomen: non tender, soft, + distended (minimal) Assessment & Plan post op ileus, s/p lap hernia/extensive EVA improved, advance to full liquids
[2017-05-29] MEDS: PANTOprazole INJ 40 MG in SYRINGE 0 ML IV SCH (11:14)
--- NOTE | 2017-05-29 13:05 | Discharge Instructions ---
Discharge Instructions Date of Service May 29, 2017. Visit Reason for Visit: Ileus Following Gastrointestinal Surgery Discharge Discharge Diagnosis / Problem: postop ileus Discharge Goals Goal(s): Decrease discomfort Activity Recommendations Activity Limitations: as noted below Lifting Limitations: no more than 10 pounds Shower/Bathe: no limitations Anesthesia . Post Anesthesia Instructions: If you have had General Anesthesia or IV Sedation: * Do not drive today. * Resume driving when surgeon permits. * Do not make important decisions or sign legal documents today. * Call surgeon for: 1. Temperature elevations greater than 101 degrees F. 2. Uncontrollable pain. 3. Excessive bleeding. 4. Persistent nausea and vomiting. 5. Medication intolerance (nausea, vomiting or rash). * For nausea and vomiting use only clear liquids such as: tea, soda, bouillon until nausea subsides, then gradually increase diet as tolerated. * If you have any concerns or questions, call your surgeon's office. If physician is unavailable and it is an emergency, call 911 or go to the nearest emergency room. . Instructions / Follow-Up Instructions / Follow-Up Dr. Moore as planned, call [phone] if you do not already have an appt Diet Recommendations Recommended Home Diet: no limitations (eat small portions for a few days) Pending Studies Studies pending at discharge: no Medical Emergencies . Who to Call and When: Medical Emergencies: If at any time you feel your situation is an emergency, please call 911 immediately. . Non-Emergent Contact Non-Emergency issues call your: Surgeon Call Non-Emergent contact if: you have a fever, temperature is above 101.5, you have any medication questions . . "Provider Documentation" section prepared by Valdemar Mitchell. .
--- NOTE | 2017-05-30 08:23 | DISCHARGE SUMMARY ---
PRIMARY DISCHARGE DIAGNOSES: 1. Postoperative ileus. 2. Status post repair of ventral hernia with extensive lysis of adhesions. SECONDARY DISCHARGE DIAGNOSES: 1. Hypertension. 2. Migraines. HOSPITAL COURSE: The patient is a 41-year-old female who presented to the Emergency Department 2 days status post laparoscopic ventral hernia repair with extensive lysis of adhesions and 20-cm mesh, complaining of vomiting. X-rays and CT were consistent with small bowel obstruction versus ileus. She was admitted to the surgery service. NG tube was ordered, but they had difficulty placing this and so, it was not completed. She was feeling better by the next day. Her vomiting resolved. She was able to begin clear liquids. By day #3, she was passing flatus and was able to tolerate an advancing diet. By the evening, she was tolerating regular diet. Her abdomen was soft and was minimally distended. She was not taking any analgesics. She was stable for discharge. DISCHARGE INSTRUCTIONS: Discharge home. Follow up with Dr. Moore next week as planned. DISCHARGE MEDICATIONS: Resume home medications including Percocet 1-2 tablets every 4 hours as needed and hydrochlorothiazide 25 mg daily.
[2017-05-30] MEDS ORDERED: PANTOprazole SOD 40 MG TAB PO SCH (09:00)
--- NOTE | 2017-05-31 07:17 | EDITING REQUIRED CODING QUERY ---
CODING QUERY To promote full compliance with coding requirements relating to patient care, provider participation is requested in all cases of staff radiologist uncertainty. Please assist us with the question(s) below: Coding Question(s): Please clarify below, in your clinical opinion, regarding the Postoperative Ileus. ( ) This was a postoperative complication ( x ) This was not a postoperative complication Physician's Response(s): Thank you Jena Muñoz Principal Diagnosis: "_that condition established after study, to be chiefly responsible for occasioning the admission of the patient to the hospital for care." Co-Existing Principal Diagnosis: "_when two or more diagnoses equally meet the criteria for principal diagnosis as determined by the circumstances of admission, diagnostic work up, and/or therapy provided, and the Alphabetic Index, Tabular List, or another coding guideline does not provide sequencing direction, any one of the diagnoses may be sequenced first." "When the physician has documented what appears to be a current diagnosis in the body of the record, but has not included the diagnosis in the final diagnostic statement, the physician should be asked whether the diagnosis should be added." (Source [facility]oding [facility] 2 QTR90. p3-4)
== END 2017-05-29 19:07 | disposition home or self-care (01) | DRG 390 ==
LOC: EDBD 17:27 → C.EDC 17:28 → C.MSW 20:20 → ENRESERV 20:32
PROVIDERS: ADMIT Surgery; ATTEND Surgery
DX: K56.7 Ileus, unspecified (principal); I10 Essential (primary) hypertension; Z79.899 Other long term (current) drug therapy; Z98.890 Other specified postprocedural states; Z87.19 Personal history of other diseases of the digestive system